=== PATIENT | male | born 1995 | race Hispanic/Latino ===

== ENCOUNTER 2018-09-28 17:55 | Emergency (ER) | payer OTHER ==
--- NOTE | 2018-09-28 19:04 | Emergency Department Report ---
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 Due to findings the following was ordered: UA, labs, CT abd/pelvis
[2018-09-28 19:05] VITALS: BP 138/72
[2018-09-28 20:13] LABS: Basophils % (Auto) 0.2 % (0.0-1.8); Eosinophils % (Auto) 0.1 % (0.0-4.3); Hematocrit 45.7 % (35.5-45.6); Hemoglobin 15.6 gm/dl (11.8-15.2); Lymphocytes # (Auto) 1.7 K/mm3 (1.2-5.4); Lymphocytes % (Auto) 10.2 % (13.4-35.0); Mean Corpuscular HGB Conc 34 % (32-34); Mean Corpuscular Volume 86 fl (84-94); Monocytes # (Auto) 1.2 K/mm3 (0.0-0.8); Monocytes % (Auto) 7.2 % (0.0-7.3); Platelet Count 279 K/mm3 (140-440); Red Blood Count 5.34 M/mm3 (3.65-5.03); Red Cell Distribution Width 12.8 % (13.2-15.2)
[2018-09-28] MEDS ORDERED: TYLENOL ONE (20:16)
--- NOTE | 2018-09-28 21:07 | Cat Scan Report ---
PROCEDURE: CT ABDOMEN PELVIS WO CON TECHNIQUE: Computerized axial tomography of the abdomen and pelvis was performed without intravenous contrast. This study is performed without intravascular contrast material and its sensitivity for ab dominal and pelvic pathology, including neoplasms, inflammation, abscess, free fluid, thrombosis, art erial dissection and infarction, is reduced compared with a contrast enhanced study. CT DOSE LENGTH PRODUCT: 441.1 mGycm HISTORY: right flank pain, hx of stones COMPARISONS: None . FINDINGS: Visualized lower thorax: No significant abnormality. Liver: Normal size and attenuation. Spleen: Normal size and attenuation. Gallbladder and biliary system: Normal. Pancreas: Normal. Adrenals: Normal. Kidneys: There are 3 right renal calculi, measuring up to 8 mm. There are two 1 mm nonobstructing rafaela culi in the left kidney. There is a 4 mm calculus in the proximal left ureter with mild left hydronep hrosis GI tract: No bowel obstruction or inflammation. Appendix is visualized and does not appear inflamed . Lymph nodes and mesentery: Normal. Vasculature: Normal.. Bladder: Normal. Reproductive organs: Normal. Peritoneum: No free fluid. Musculoskeletal structures: No significant abnormality. Other: None. IMPRESSION: 4 mm calculus in the proximal left ureter, with mild left hydroureteronephrosis. Bilateral renal calc estrada are present . This document is electronically signed by Anastacia Lopes MD., September 28 2018 09:05:49 PM ET
[2018-09-28 21:15] LABS: Alanine Aminotransferase 12 units/L (7-56); Albumin 5.2 g/dL (3.9-5); BUN/Creatinine Ratio 14; Blood Urea Nitrogen 15 mg/dL (9-20); Calcium 9.8 mg/dL (8.4-10.2); Hemolysis Index 3
[2018-09-28 21:36] LABS: Amorphous Crystals,Urine Few; Bilirubin,Urine NEG (Negative); Blood,Urine MOD (Negative); Color,Urine Yellow (Yellow); Mucus,Urine FEW /HPF; Urobilinogen,Urine < 2.0 mg/dL (<2.0)
[2018-09-28] MEDS ORDERED: ZOFRAN IV ONE (21:36)
[2018-09-28] MEDS ORDERED: MORPHINE IV ONE (21:36)
[2018-09-28] MEDS ORDERED: ROCEPHIN/NS 1 GM/50 ML 1 GM/50 ML BAG IV ONE (21:37)
--- NOTE | 2018-09-28 23:48 | Emergency Department Report ---
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 Complaint: abdominal pain, flank pain Onset/Timin -: week(s) Location: bilateral flank Radiation: suprapubic Severity: moderate Severity scale (0 -10): 5 Quality: aching Consistency: intermittent Improves With: rest Worsens With: other (voiding) Context: other (chronic renal stones ) Associated Symptoms: nausea, vomiting, chills, dysuria - Related Data Previous Rx's Medication Instructions Recorded Last Taken Type Ciprofloxacin HCl [Cipro] 500 mg PO BID 10 Days #20 tablet 09/28/18 Unknown Rx Tamsulosin [Flomax] 0.4 mg PO QDAY #10 cap 09/28/18 Unknown Rx traMADol [Ultram 50 MG tab] 50 mg PO Q6HR PRN #12 tablet 09/28/18 Unknown Rx Allergies Allergy/AdvReac Type Severity Reaction Status Date / Time No Known Allergies Allergy Unverified 09/28/18 19:05 ED Review of Systems ROS: Stated complaint: SIDE PAIN/FACE NUMBNESS Other details as noted in HPI Constitutional: denies: chills, fever Eyes: denies: eye pain, eye discharge, vision change ENT: denies: ear pain, throat pain Respiratory: denies: cough, shortness of breath, wheezing Cardiovascular: denies: chest pain, palpitations Endocrine: no symptoms reported Gastrointestinal: abdominal pain, nausea, vomiting. denies: diarrhea, constipation Genitourinary: urgency, dysuria, frequency. denies: hematuria, discharge, testicular pain, testicular mass Musculoskeletal: back pain. denies: joint swelling, arthralgia Skin: denies: rash, lesions Neurological: denies: headache, weakness, paresthesias Psychiatric: denies: anxiety, depression Hematological/Lymphatic: denies: easy bleeding, easy bruising ED Past Medical Hx - Past Medical History Previous Medical History?: No - Surgical History Past Surgical History?: No - Social History Smoking Status: Never Smoker Substance Use Type: None - Medications Home Medications: Home Medications Medication Instructions Recorded Confirmed Last Taken Type Ciprofloxacin HCl [Cipro] 500 mg PO BID 10 Days #20 tablet 09/28/18 Unknown Rx Tamsulosin [Flomax] 0.4 mg PO QDAY #10 cap 09/28/18 Unknown Rx traMADol [Ultram 50 MG tab] 50 mg PO Q6HR PRN #12 tablet 09/28/18 Unknown Rx ED Physical Exam - General Limitations: No Limitations General appearance: alert, in no apparent distress - Head Head exam: Present: atraumatic, normocephalic - Eye Eye exam: Present: normal appearance, PERRL, EOMI Pupils: Present: normal accommodation - ENT ENT exam: Present: mucous membranes moist - Neck Neck exam: Present: normal inspection, full ROM. Absent: lymphadenopathy - Respiratory Respiratory exam: Present: normal lung sounds bilaterally. Absent: respiratory distress, wheezes, stridor, chest wall tenderness - Cardiovascular Cardiovascular Exam: Present: regular rate, normal rhythm, normal heart sounds. Absent: systolic murmur, diastolic murmur, rubs, gallop - GI/Abdominal GI/Abdominal exam: Present: soft, normal bowel sounds. Absent: distended, tenderness, guarding, rebound, rigid, bruit, hernia - Expanded GI/Abdominal Exam Expanded GI/Abdominal exam: Absent: psoas sign, obturator sign, heel tap sign, Lundberg's sign, Rovsing's sign, tenderness at Mcburney's Point, ascites - Rectal Rectal exam: Present: deferred - Extremities Exam Extremities exam: Present: normal inspection, full ROM, normal capillary refill. Absent: tenderness - Back Exam Back exam: Present: full ROM, CVA tenderness (R). Absent: CVA tenderness (L), muscle spasm, rash noted - Neurological Exam Neurological exam: Present: alert, oriented X3, CN II-XII intact, normal gait, reflexes normal - Psychiatric Psychiatric exam: Present: normal affect, normal mood - Skin Skin exam: Present: warm, dry, intact, normal color. Absent: rash ED Course Vital Signs 09/28/18 09/28/18 19:04 22:33 Temperature 97.9 F Pulse Rate 47 L Respiratory 18 20 Rate Blood Pressure 138/72 O2 Sat by Pulse 100 Oximetry ED Medical Decision Making - Lab Data Result diagrams: 09/28/18 19:54 09/28/18 19:54 Labs 09/28/18 09/28/18 09/28/18 19:54 19:54 21:14 WBC 17.1 H RBC 5.34 H Hgb 15.6 H Hct 45.7 H MCV 86 MCH 29 MCHC 34 RDW 12.8 L Plt Count 279 Lymph % (Auto) 10.2 L [place] % (Auto) 7.2 Eos % (Auto) 0.1 Baso % (Auto) 0.2 Lymph # 1.7 [place] # 1.2 H Eos # 0.0 Baso # 0.0 Seg Neutrophils % 82.3 H Seg Neutrophils # 14.1 H Sodium 144 Potassium 4.4 Chloride 101.8 Carbon Dioxide 27 Anion Gap 20 BUN 15 Creatinine 1.1 Estimated GFR > 60 BUN/Creatinine Ratio 14 Glucose 138 H Calcium 9.8 Total Bilirubin 0.40 AST 19 ALT 12 Alkaline Phosphatase 83 Total Protein 8.3 H Albumin 5.2 H Albumin/Globulin Ratio 1.7 Lipase 32 Urine Color Yellow Urine Turbidity Cloudy Urine pH 7.0 Ur Specific [place] 1.023 Urine Protein 100 mg/dl Urine Glucose (UA) Neg Urine Ketones 20 Urine Blood Mod Urine Nitrite Neg Urine Bilirubin Neg Urine Urobilinogen < 2.0 Ur Leukocyte Esterase Tr Urine WBC (Auto) 17.0 H Urine RBC (Auto) 156.0 Amorphous Crystals Few Urine Mucus Few - Radiology Data Radiology results: report reviewed, image reviewed Referring Physician: HARLEY BHAGAT Patient Name: SUE MARIA Date of : 1995 Sex: Male Report Date: 2018-09-28 Report Status: [place] [address] Cat Scan Report Signed Patient: SUE MARIA III MR#: [id number] : 1995 Acct:[id number] Age/Sex: 23 / M ADM Date: 09/28/18 Loc: ED Attending Dr: Ordering Physician: TERESA WONG Date of Service: 09/28/18 Procedure(s): CT abdomen pelvis wo con Accession Number(s): [id number] cc: TERESA WONG PROCEDURE: CT ABDOMEN PELVIS WO CON TECHNIQUE: Computerized axial tomography of the abdomen and pelvis was performed without intravenous contrast. This study is performed without intravascular contrast material and its sensitivity for abdominal and pelvic pathology, including neoplasms, inflammation, abscess, free fluid, thrombosis, arterial dissection and infarction, is reduced compared with a contrast enhanced study. CT DOSE LENGTH PRODUCT: 441.1 mGycm HISTORY: right flank pain, hx of stones COMPARISONS: None . FINDINGS: Visualized lower thorax: No significant abnormality. Liver: Normal size and attenuation. Spleen: Normal size and attenuation. Gallbladder and biliary system: Normal. Pancreas: Normal. Adrenals: Normal. Kidneys: There are 3 right renal calculi, measuring up to 8 mm. There are two 1 mm nonobstructing calculi in the left kidney. There is a 4 mm calculus in the proximal left ureter with mild left hydronephrosis GI tract: No bowel obstruction or inflammation. Appendix is visualized and does not appear inflamed . Lymph nodes and mesentery: Normal. Vasculature: Normal.. Bladder: Normal. Reproductive organs: Normal. Peritoneum: No free fluid. Musculoskeletal structures: No significant abnormality. Other: None. IMPRESSION: 4 mm calculus in the proximal left ureter, with mild left hydroureteronephrosis. Bilateral renal calculi are present . This document is electronically signed by Anastacia Lopes MD., September 28 2018 09:05:49 PM ET Transcribed By: [facility] Dictated By: ANASTACIA LOPES M.D. Electronically Authenticated By: ANASTACIA LOPES M.D. Signed Date/Time: 09/28/182106 DD/ 40 TD/TT: 09/28/182040 - Medical Decision Making CT pos for bilat renal stones 4mm, mild left hydronephrosis this is a chronic condtion for this patient plan: rocphin 1gm ivbp in ed, dc to home with cipro, flomax, toradol po , follow up with urology in 2 days pt verbalized agreement and understanding of discharge plan pt is currently a/o x 3, pain level 2/10 pt is tolerating po intake there is no n/v appeares well and nontoxic. pt dc'd to home in stable condition at this time. Critical care attestation.: If time is entered above; I have spent that time in minutes in the direct care of this critically ill patient, excluding procedure time. ED Disposition Clinical Impression: Renal stones Disposition: DC-01 TO HOME OR SELFCARE Is pt being admited?: No Does the pt Need Aspirin: No Condition: Stable Instructions: Kidney Stones (ED) Prescriptions: Ciprofloxacin HCl [Cipro] 500 mg PO BID 10 Days #20 tablet Tamsulosin [Flomax] 0.4 mg PO QDAY #10 cap traMADol [Ultram 50 MG tab] 50 mg PO Q6HR PRN #12 tablet PRN Reason: Pain Referrals: MILES ALEXANDER MD [Staff Physician] - 3-5 Days Forms: Work/School Release Form(ED) Time of Disposition: 23:59
== END 2018-09-29 00:19 | disposition home or self-care (01) ==
LOC: ED 17:55
DX: N20.0 Calculus of kidney (principal)
CPT/HCPCS: 36415; 74176; 80053; 81001; 83690; 85025; 96365; 96375; 99284; J0696; J2270; J2405